=== PATIENT | male | born 1980 | race Caucasian/White ===

== ENCOUNTER 2019-04-01 11:37 | Emergency (ER) | payer SELFPAY ==
[~2019-04-01] VITALS: Ht 182.9 cm; Wt 99.8 kg
[2019-04-01 11:41] VITALS: BP_SYST 163
[2019-04-01 12:07] VITALS: BP_SYST 160
== END 2019-04-01 12:08 | disposition home or self-care (01) ==
LOC: SED 11:37
DX: K02.9 Dental caries, unspecified (principal); K08.89 Other specified disorders of teeth and supporting structures
CPT/HCPCS: 99283

== ENCOUNTER 2019-04-03 01:28 | Emergency (ER) | payer SELFPAY ==
[~2019-04-03] VITALS: Ht 182.9 cm; Wt 99.3 kg
[2019-04-03 01:55] VITALS: BP_SYST 153
--- NOTE | 2019-04-03 01:55 | NUR ---
Patient to ER bed 05 to gown for evaluation. Side rails up. Report given to ANNA Wiley.
--- NOTE | 2019-04-03 02:00 | NUR ---
DUYEN Bowens at bedside for medical evaluation.
--- NOTE | 2019-04-03 02:00 | NUR ---
Patient AOx4, ambulatory, presents to ER with complaint of left tonsil swelling, left neck pain, and left ear pain 05/19 since Tuesday. Patient also reports episodes of fever and chills. Patient was prescribed cipro and norco on Tuesday for a possible tooth infection. No other symptoms or complaints.
[2019-04-03 02:18] VITALS: BP_SYST 135
--- NOTE | 2019-04-03 02:18 | NUR ---
Patient given written and verbal discharge instructions and verbalizes understanding. ER MD discussed with patient the results and treatment provided. Patient in stable condition. ID arm band removed. No Rx given. Patient educated on pain management and to follow up with PMD. Pain Scale 0/10. Pt instructed to continue Grimstead as Rx. Opportunity for questions provided and answered. Medication side effect fact sheet provided.
== END 2019-04-03 02:18 | disposition home or self-care (01) ==
LOC: SED 01:28
DX: J36 Peritonsillar abscess (principal); R03.0 Elevated blood-pressure reading, without diagnosis of hypertension
CPT/HCPCS: 99281